=== PATIENT | male | born 1980 | race Caucasian/White ===

== ENCOUNTER → 2022-07-27 10:06 | Outpatient (CLI) | payer BC, SELFPAY ==
[2022-07-27 19:43] LABS: Basophils # 0.1 K/mm3 (0-0.2); Eosinophils # 0.1 K/mm3 (0.0-0.4); Eosinophils % 0.7 % (0.1-12.0); Hematocrit 46.9 % (42.0-52.0); Hemoglobin 15.9 g/dL (14.1-18.0); Lymphocytes # 1.7 K/mm3 (0.7-4.5); Lymphocytes % 22.9 % (10-50); Mean Corpuscular Hemoglobin 30.5 pg (27.0-31.2); Mean Corpuscular Volume 89.7 fl (80-94); Mean Platelet Volume 10.7 fl (7.4-10.4); Monocytes # 0.4 K/mm3 (0.1-1.0); Monocytes % 5.7 % (1.7-9.3); Neutrophils # 5.2 K/mm3 (1.8-7.8); Neutrophils % 69.6 % (37.0-80.0); Platelet Count 283 K/mm3 (142-424); Red Blood Count 5.24 M/mm3 (4.60-6.20); Red Cell Distribution Width 14.2 % (11.5-17.5); White Blood Count 7.4 K/mm3 (4.8-10.8)
[2022-07-27 19:50] LABS: Alanine Aminotransferase 88 U/L (12-78); Albumin Level 4.3 g/dl (3.5-5.0); Albumin/Globulin Ratio 1.3 (1.1-1.8); Alkaline Phosphatase 124 U/L (38-126); Anion Gap 17.8 mEq/L (5-15); Aspartate Amino Transferase 70 U/L (17-59); Bilirubin,Total 0.7 mg/dl (0.2-1.3); Blood Urea Nitrogen 10 mg/dl (9-20); Calcium 9.3 mg/dl (8.4-10.2); Carbon Dioxide 27 mmol/L (22.0-30.0); Chloride 99 mmol/L (98-107); Chol/HDL Ratio 5.3 (1-3.5); Cholesterol 211 mg/dl (140-200); Estimated Glomerular Filt Rate 125 ml/min (>60); GFR (African American) 151 ML/MIN (>60); Globulin 3.4 g/dL (1.3-3.2); Glucose 196 mg/dl (74-100); HDL Cholesterol 40 mg/dl (40-60); Potassium 3.8 mmoL/L (3.5-5.1); Sodium 140 mmol/L (136-145); Total Protein,Serum 7.7 g/dl (6.3-8.2); Triglycerides 204 mg/dl (30-150); VLDL Cholesterol 41 mg/dL (0-40)
[2022-07-27 20:09] LABS: Direct LDL Cholesterol 126.77 mg/dL (100-129); Hemoglobin A1C 8.1 % (4.0-6.0)
== END ==
PROVIDERS: PCP Nurse Practitioner Family; Visit Provider Nurse Practitioner Family
DX: R73.9 Hyperglycemia, unspecified (principal)
CPT/HCPCS: 80053; 80061; 83036; 85025

== ENCOUNTER → 2022-10-20 09:10 | Outpatient (CLI) | payer BC, SELFPAY ==
[2022-10-20 18:38] LABS: Hemoglobin A1C 6.3 % (4.0-6.0)
[2022-10-20 19:33] LABS: Creatinine,Urine Random 72 mg/dL (Not Estab.)
[2022-10-20 19:35] LABS: Microalbumin/Creatinine Ratio 65.5
== END ==
PROVIDERS: PCP Family Medicine; Visit Provider Family Medicine
DX: E11.9 Type 2 diabetes mellitus without complications (principal); Z79.84 Long term (current) use of oral hypoglycemic drugs
CPT/HCPCS: 82043; 82570; 83036

== ENCOUNTER → 2023-02-08 23:34 | Outpatient (CLI) | payer BC, SELFPAY ==
[2023-02-08 17:12] LABS: Creatinine,Urine Random 241 mg/dL (Not Estab.)
[2023-02-08 17:14] LABS: Microalbumin/Creatinine Ratio 69.5
[2023-02-08 17:37] LABS: Hemoglobin A1C 5.8 % (4.0-6.0)
== END ==
PROVIDERS: PCP Family Medicine; Visit Provider Family Medicine
DX: E11.9 Type 2 diabetes mellitus without complications (principal); Z79.84 Long term (current) use of oral hypoglycemic drugs
CPT/HCPCS: 82043; 82570; 83036

== ENCOUNTER → 2023-08-08 08:36 | Outpatient (CLI) | payer BC, SELFPAY ==
[2023-08-08 16:45] LABS: Basophils # 0.1 K/mm3 (0-0.2); Basophils % 0.8 % (0.1-2.0); Eosinophils # 0.1 K/mm3 (0.0-0.4); Hematocrit 49.3 % (42.0-52.0); Hemoglobin 16.5 g/dL (14.1-18.0); Lymphocytes # 1.2 K/mm3 (0.7-4.5); Lymphocytes % 20.2 % (10-50); Mean Corpuscular HGB Conc 33.4 g/dL (31.8-35.4); Mean Corpuscular Hemoglobin 31.7 pg (27.0-31.2); Mean Platelet Volume 12.6 fl (7.4-10.4); Monocytes # 0.5 K/mm3 (0.1-1.0); Monocytes % 8.5 % (1.7-9.3); Neutrophils # 4.1 K/mm3 (1.8-7.8); Neutrophils % 69.4 % (37.0-80.0); Platelet Count 281 K/mm3 (142-424); Red Blood Count 5.19 M/mm3 (4.60-6.20); Red Cell Distribution Width 14.1 % (11.5-17.5); White Blood Count 5.9 K/mm3 (4.8-10.8)
[2023-08-08 16:57] LABS: Alanine Aminotransferase 220 U/L (12-78); Albumin Level 4.6 g/dl (3.5-5.0); Albumin/Globulin Ratio 1.2 (1.1-1.8); Alkaline Phosphatase 233 U/L (38-126); Anion Gap 18.2 mEq/L (5-15); Aspartate Amino Transferase 107 U/L (17-59); Bilirubin,Total 5.3 mg/dl (0.2-1.3); Blood Urea Nitrogen 14 mg/dl (9-20); Calcium 10.1 mg/dl (8.4-10.2); Carbon Dioxide 27 mmol/L (22.0-30.0); Chloride 97 mmol/L (98-107); Chol/HDL Ratio 11.8 (1-3.5); Cholesterol 282 mg/dl (140-200); Estimated Glomerular Filt Rate 93 ml/min (>60); GFR (African American) 113 ML/MIN (>60); Glucose 245 mg/dl (74-100); HDL Cholesterol 24 mg/dl (40-60); Potassium 4.2 mmoL/L (3.5-5.1); Sodium 138 mmol/L (136-145); Total Protein,Serum 8.6 g/dl (6.3-8.2); Triglycerides 303 mg/dl (30-150); VLDL Cholesterol 61 mg/dL (0-40)
[2023-08-08 17:07] LABS: Direct LDL Cholesterol 191.86 mg/dL (100-129)
[2023-08-08 17:26] LABS: Thyroid Stimulating Hormone 1.57 uIU/mL (0.465-4.68)
[2023-08-08 18:02] LABS: Hemoglobin A1C 7.1 % (4.0-6.0)
[2023-08-08 18:26] LABS: Creatinine,Urine Random 145 mg/dL (Not Estab.)
[2023-08-08 19:24] LABS: Microalbumin/Creatinine Ratio 239.7
== END ==
PROVIDERS: PCP Nurse Practitioner Family; Visit Provider Nurse Practitioner Family
DX: E11.9 Type 2 diabetes mellitus without complications (principal); E78.5 Hyperlipidemia, unspecified; I10 Essential (primary) hypertension; Z79.84 Long term (current) use of oral hypoglycemic drugs; Z79.899 Other long term (current) drug therapy
CPT/HCPCS: 80053; 80061; 82043; 82570; 83036; 84443; 85025

== ENCOUNTER → 2023-08-10 07:42 | Outpatient (CLI) | payer BC, SELFPAY ==
--- NOTE | 2023-08-10 07:42 | US_ITS ---
FINAL REPORT TECHNIQUE: Sonographic images of the abdomen were obtained in all four quadrants. CLINICAL HISTORY: elevated liver function FINDINGS: LIVER: Homogeneous. No focal hepatic lesion. There may be mild intrahepatic biliary dilatation. GALLBLADDER: There are gallstones. No pericholecystic fluid collection or gallbladder wall thickening. The common duct is dilated measuring up to 10 mm. PANCREAS: Unremarkable. RIGHT KIDNEY: 10.4 cm. No hydronephrosis, mass or stone. LEFT KIDNEY: 11.4 cm. No hydronephrosis, mass or stone. SPLEEN: 13.4 cm. No focal splenic lesion. AORTA/IVC: No abdominal aortic aneurysm. Visualized IVC within normal limits. OTHER: No ascites. IMPRESSION: Gallstones. Intrahepatic and extrahepatic biliary ductal dilatation. Consider MRCP. A common duct stone is not excluded. Reviewed, Interpreted and Dictated by Alyssa Watson MD Transcribed by Fatou Robin Authenticated and . [facility]
[2023-08-10 08:42] LABS: Basophils # 0.1 K/mm3 (0-0.2); Eosinophils # 0.1 K/mm3 (0.0-0.4); Hemoglobin 15.7 g/dL (14.1-18.0); Lymphocytes # 1.4 K/mm3 (0.7-4.5); Lymphocytes % 30.7 % (10-50); Mean Corpuscular HGB Conc 34.2 g/dL (31.8-35.4); Mean Corpuscular Hemoglobin 31.5 pg (27.0-31.2); Mean Corpuscular Volume 91.9 fl (80-94); Mean Platelet Volume 10.2 fl (7.4-10.4); Monocytes # 0.4 K/mm3 (0.1-1.0); Monocytes % 8.5 % (1.7-9.3); Neutrophils # 2.7 K/mm3 (1.8-7.8); Neutrophils % 57.7 % (37.0-80.0); Platelet Count 232 K/mm3 (142-424); White Blood Count 4.7 K/mm3 (4.8-10.8)
[2023-08-10 09:54] LABS: Alanine Aminotransferase 207 U/L (12-78); Albumin Level 4.4 g/dl (3.5-5.0); Albumin/Globulin Ratio 1.2 (1.1-1.8); Alkaline Phosphatase 210 U/L (38-126); Anion Gap 17.2 mEq/L (5-15); Aspartate Amino Transferase 108 U/L (17-59); Bilirubin,Total 4.5 mg/dl (0.2-1.3); Blood Urea Nitrogen 13 mg/dl (9-20); Calcium 9.9 mg/dl (8.4-10.2); Carbon Dioxide 26 mmol/L (22.0-30.0); Chloride 98 mmol/L (98-107); Chol/HDL Ratio 10.8 (1-3.5); Cholesterol 260 mg/dl (140-200); Estimated Glomerular Filt Rate 93 ml/min (>60); GFR (African American) 113 ML/MIN (>60); Globulin 3.6 g/dL (1.3-3.2); Glucose 219 mg/dl (74-100); HDL Cholesterol 24 mg/dl (40-60); Potassium 4.2 mmoL/L (3.5-5.1); Sodium 137 mmol/L (136-145); Triglycerides 256 mg/dl (30-150); VLDL Cholesterol 51 mg/dL (0-40)
[2023-08-10 10:01] LABS: Hemoglobin A1C 7.2 % (4.0-6.0)
[2023-08-10 10:05] LABS: Direct LDL Cholesterol 186.04 mg/dL (100-129)
== END ==
LOC: RAD 07:42
PROVIDERS: PCP Nurse Practitioner Family; Visit Provider Nurse Practitioner Family
DX: R79.89 Other specified abnormal findings of blood chemistry (principal); E11.9 Type 2 diabetes mellitus without complications; Z79.84 Long term (current) use of oral hypoglycemic drugs
CPT/HCPCS: 36415; 76700; 80053; 80061; 83036; 85025

== ENCOUNTER 2024-01-11 18:00 | Outpatient (CLI) | payer BC, SELFPAY ==
[2024-01-11 17:58] LABS: Chol/HDL Ratio 6.7 (1-3.5); Cholesterol 214 mg/dl (140-200); HDL Cholesterol 32 mg/dl (40-60); Triglycerides 256 mg/dl (30-150); VLDL Cholesterol 51 mg/dL (0-40)
[2024-01-11 18:10] LABS: Direct LDL Cholesterol 112.09 mg/dL (100-129)
[2024-01-11 18:34] LABS: Hemoglobin A1C 7.3 % (4.0-6.0)
== END 2024-01-11 23:59 ==
LOC: LAB.DROPOF 01-12 13:48
PROVIDERS: PCP Family Medicine; Visit Provider Family Medicine
DX: E11.9 Type 2 diabetes mellitus without complications (principal); Z79.84 Long term (current) use of oral hypoglycemic drugs
CPT/HCPCS: 80061; 83036

== ENCOUNTER 2024-05-23 13:49 | Outpatient (CLI) | payer BC, SELFPAY ==
[2024-05-23 12:50] LABS: Microalbumin/Creatinine Ratio 31.3
[2024-05-23 12:52] LABS: Creatinine,Urine Random 106 mg/dL (Not Estab.)
[2024-05-23 13:05] LABS: Hemoglobin A1C 6.5 % (4.0-6.0)
[2024-05-23 13:18] LABS: Alanine Aminotransferase 40 U/L (12-78); Albumin Level 4.5 g/dl (3.5-5.0); Albumin/Globulin Ratio 1.4 (1.1-1.8); Alkaline Phosphatase 79 U/L (38-126); Anion Gap 12.6 mEq/L (5-15); Aspartate Amino Transferase 33 U/L (17-59); Bilirubin,Total 0.8 mg/dl (0.2-1.3); Blood Urea Nitrogen 11 mg/dl (9-20); Calcium 9.6 mg/dl (8.4-10.2); Carbon Dioxide 28 mmol/L (22.0-30.0); Chloride 105 mmol/L (98-107); Cholesterol 157 mg/dl (140-200); Estimated Glomerular Filt Rate 106 ml/min (>60); GFR (African American) 128 ML/MIN (>60); Globulin 3.3 g/dL (1.3-3.2); Glucose 138 mg/dl (74-100); HDL Cholesterol 39 mg/dl (40-60); Potassium 4.6 mmoL/L (3.5-5.1); Sodium 141 mmol/L (136-145); Total Protein,Serum 7.8 g/dl (6.3-8.2); Triglycerides 157 mg/dl (30-150); VLDL Cholesterol 31 mg/dL (0-40)
[2024-05-23 13:29] LABS: Direct LDL Cholesterol 82.73 mg/dL (100-129)
== END 2024-05-23 23:59 | disposition home or self-care (01) ==
LOC: LAB.DROPOF 05-24 13:50
PROVIDERS: PCP Family Medicine; Visit Provider Family Medicine
DX: E78.5 Hyperlipidemia, unspecified (principal); E11.9 Type 2 diabetes mellitus without complications; I10 Essential (primary) hypertension
CPT/HCPCS: 80053; 80061; 82043; 82570; 83036

== ENCOUNTER 2025-01-29 08:45 | Outpatient (CLI) | payer BC, SELFPAY ==
[2025-01-29 19:37] LABS: Alanine Aminotransferase 40 U/L (12-78); Albumin Level 4.4 g/dl (3.5-5.0); Albumin/Globulin Ratio 1.4 (1.1-1.8); Alkaline Phosphatase 88 U/L (38-126); Anion Gap 13.1 mEq/L (5-15); Aspartate Amino Transferase 29 U/L (17-59); Bilirubin,Total 0.8 mg/dl (0.2-1.3); Blood Urea Nitrogen 14 mg/dl (9-20); Calcium 9.5 mg/dl (8.4-10.2); Carbon Dioxide 22 mmol/L (22.0-30.0); Chloride 107 mmol/L (98-107); Chol/HDL Ratio 5.3 (1-3.5); Cholesterol 169 mg/dl (140-200); Estimated Glomerular Filt Rate 106 ml/min (>60); GFR (African American) 128 ML/MIN (>60); Globulin 3.1 g/dL (1.3-3.2); Glucose 168 mg/dl (74-100); HDL Cholesterol 32 mg/dl (40-60); Potassium 4.1 mmoL/L (3.5-5.1); Sodium 138 mmol/L (136-145); Total Protein,Serum 7.5 g/dl (6.3-8.2); Triglycerides 297 mg/dl (30-150); VLDL Cholesterol 59 mg/dL (0-40)
[2025-01-29 19:48] LABS: Direct LDL Cholesterol 70.27 mg/dL (100-129)
[2025-01-29 20:36] LABS: HIV Combo NEGATIVE (Negative)
[2025-01-29 20:43] LABS: Hepatitis C Ab Qual. W/ RFX NEGATIVE (Negative)
--- OUTSIDE RECORDS SUMMARY | 2025-01-30 13:29 | XMS_ITS | Data Portability ---
Author Organization [place] - [facility] & JAMAL Santos ADMIN Address [address] [place] [id number] Assessment No assessment recorded. Plan of Treatment Reminders Order Date Submit Date Provider Last Modified By Organization Details Last Modified Time Details Appointments None record ed. Lab None record ed. Referral None record ed. Procedures None record ed. Surgeries None record ed. Imaging None record ed. Medication Orders None record ed. Patient TargetsNo targets recorded. Patient InstructionsNo instructions recorded. Reason for Referral None Reported. Results Created Date Observation Date Name Description Value Unit Range Abnormal Flag Note LastModifiedBy Organization Detail LastModifiedTime 09/05/20 23 09/05/2023 HEPAT IC FUNCT IONAL PANEL total protein 8.1 g/dL 6.4-8. 2 Not Available [facility] ([facility]) [address] [place], [address], 09/05/2023 13:30:49 09/05/20 23 09/05/2023 HEPAT IC FUNCT IONAL PANEL albumin 3.8 g/dL 3.4-5. 0 Not Available [facility] ([facility]) [address] [place], [address], 09/05/2023 13:30:49 09/05/20 23 09/05/2023 HEPAT IC FUNCT IONAL PANEL bilirubin direct 0.4 O.oo-0 .30 high Not Available [facility] ([facility]) [address] [place], [address], 09/05/2023 13:30:49 09/05/20 23 09/05/2023 HEPAT IC FUNCT IONAL PANEL bilirubin total 1.00 mg/dL 0.10-1 .00 Not Available [facility] ([facility]) [address] [facility], [place], [address], 09/05/2023 13:30:49 09/05/20 23 09/05/2023 HEPAT IC FUNCT IONAL PANEL bilirubin indirect 0.60 Not Available [facility] ([facility]) [address] [facility], [place], [address], 09/05/2023 13:30:49 09/05/20 23 09/05/2023 HEPAT IC FUNCT IONAL PANEL AST (SGOT) 60 U/L 0-37 high Not Available [facility] ([facility]) [address] [facility], [place], [address], 09/05/2023 13:30:49 09/05/20 23 09/05/2023 HEPAT IC FUNCT IONAL PANEL ALT (SGPT) 127 U/L 0-65 high Not Available [facility] ([facility]) [address] [facility], [place], [address], 09/05/2023 13:30:49 09/05/20 23 09/05/2023 HEPAT IC FUNCT IONAL PANEL alk phosphatase 125 U/L 46-116 high Not Available [facility] ([facility]) [address] [facility], [place], [address], 09/05/2023 13:30:49 09/07/20 23 09/07/2023 fluor o less than 1 HR [facility] [address] [place] [address] Phone: Fax: Name: JIM LIVINGSTON Exam Date: 023 : 1979 Age 43 Gender : M Access ion: [id number] Physic jaden: CASE, NADINE Facili ty: [place] Facili ty HSV: Outpat ient Exam: FLUORO LESS THAN 1 HR Fluoro scopy time in the OR Histor y: ERCP Findin gs: Number of images : 7 Fluoro time: 43.9 second s DAP: 0.4625 8 uGym2. Radiat ion exposu re in Refere nce air Kerma: 26.31 mGy. Impres angelia: Fluoro scopy time in the OR. Please see operat hilaria report . Images review ed, interp reted and dictat ed by Dr. Shearer. Transc ribed by Ottoniel Guerra PA-C Dictat ed By: MIRLANDE SHEARER Transc ribed By: Mirlande Shearer Transc ribed On: 023 12:29 PM Electr onical ly signed by: MIRLANDE SHEARER Thank you for referr JIM Stanford to [facility]. Legall y authen ticate d by POPE MIRLANDE Roberts 2022-10 12:29: 04 CC'ed Logic: Orderi ng Provid er: RO MCCOY Referr estela Provid er: RO MCCOY [email or web address] [facility] [address] [facility], [place], [address], 09/07/2023 13:44:35 Result Notes Documentation Provider Name and Address Organization Details Recorded Time Pathology Study : reviewed - chronic cholecystitis Giuliana Sheffield MD [address] [facility], [place], [address], [facility] - [facility] [place] 09/14/2023 14:56:21 Problems Name Problem SNOMED Code Status Onset Date Resolution Date Notes Provider Name and Address Organization Details Recorded Time Gallstone pancreatitis 84628585 Active 2022 Raymond Romano PA-C [address], [place], [address] , [facility] - [facility] [place] 16:39:55 Problem Notes None recorded. Procedures Surgical History Date Name Laterality Status Provider Name and Address Organization Details Recorded Time Stent Placement completed Adali Caldwell [place] - [facility] [place] 08/23/2023 09:23:40 Imaging Results Imaging Date Name Status LastModified by Ki atarben Details LastModified Time 09/07/2023 fluoro less than 1 HR completed [email or web address] [facility] [address], [place], [address], 09/07/2023 13:44:35 Procedure Notes None recorded. Medical Equipment None Reported. Allergies No known drug allergies Medications Name Sig Start Date Stop Date Status Note LastModified by Organization Details LastModified Time metformin 500 mg tablet active Not Available Not Available Not Available ibuprofen 800 mg tablet 09/20 completed Not Available Not Available Not Available acetaminophen 500 mg tablet active Not Available Not Availabl e Not Available triamcinolone acetonide 0.1 % topical cream active Not Available Not Availabl e Not Available oxycodone-acetam inophen 5 mg-325 mg tablet 09/20 completed Not Available Not Available Not Available OneTouch Ultra Test strips active Not Available Not Available Not Available lisinopril 5 mg tablet active Not Available Not Available Not Available ibuprofen 600 mg tablet 09/20 completed Not Available Not Available Not Available oxycodone-acetam inophen 7.5 mg-325 mg tablet 08/23 completed Not Available Not Available Not Available ondansetron 4 mg disintegrating tablet 08/23 completed Not Available Not Available Not Available metformin ER 500 mg tablet,extended release 24 hr active Not Available Not Availabl e Not Available Vitals Date Recorded Body weight Body mass index (BMI) Body height Oxygen saturation Oxygen saturation in Arterial blood by Pulse oximetry Body temperature Heart rate Systolic blood pressure Diastolic blood pressure Provider Name and Address Organization Details Last Updated DateTime 3 67834.6 3 g 25.1 kg/m2 180.34 cm 98 % 98 % 97.7 [degF] 119 /min 126 mm[Hg] 88 mm[Hg] Adali munoz [place] - [place] [facility] [place] 3 09:17:55 Date Recorded Body height Body mass index (BMI) Body weight Body temperature Oxygen saturation Oxygen saturation in Arterial blood by Pulse oximetry Heart rate Systolic blood pressure Diastolic blood pressure Provider Name and Address Organization Details Last Updated DateTime 3 180.34 cm 25.5 kg/m2 65244.6 1 g 98.2 [degF] 98 % 98 % 109 /min 115 mm[Hg] 84 mm[Hg] Krystal Bravo [facility] & [place] 09:41:22 Social History Question Answer Notes LastModified by Organizat ion Details LastModified Time Tobacco Smoking Status Never Smoker Adali chapa, [facility] [place] 08/23/2023 09:22:46 What Is Your Level Of Alcohol Consumption? None Information not available 08/23/2023 Do You Use Any Illicit Or Recreational Drugs? No Information not available 08/23/2023 Sex: Unknown Functional Status None recorded. Mental Status None recorded. Family History Relationship Description Onset Age of this Age Resolved Age Notes LastModified by Organization Details LastModified Time Father Heart disease [email or web address] Not available 09:20:50 Mother Diabetes mellitus [email or web address] Not available 09:21:16 Mother Disorder of thyroid gland [email or web address] Not available 09:21:44 Sister Diabetes mellitus [email or web address] Not available 09:22:05 Medical History Condition Response Diabetes Y Hypertension Y Past Encounters Encounter ID Performer Location Encounter Start Date Encounter Closed Date Diagnosis/Indication Diagnosis SNOMED-CT Code Diagnosis ICD10 Code Diagnosis Note [id number] Giuliana Sheffield MD [facility] General Surgery [address] [place] [address],[facility] e [address] [place] [id number] 08/23/2023 08:58:14 08/23/2023 09:56:12 Common bile duct calculus 555885067 K80.50 Cholelithi asis with recent choledocho lithiasis and pancreatit is requiring ERCP and stent placement. I have scheduled the patient for urgent robotic assisted laparoscop ic multiport cholecyste ctomy, concomitan t with the scheduled ERCP and stent removal by Dr. Cisse. Informed consent was obtained. Risks and benefits of the procedure, including but not limited to, bleeding, infection, damage to surroundin g structures and ongoing symptoms were discussed. Standard of care efforts are taken to minimize risks. Typical hospital stay and recovery were reviewed. The typical postoperat hilaria pain regimen and avoidance of narcotics were discussed. The patient verbalized understand ing of the plan including the risks and benefits. Appropriat e preoperati ve testing as clinically indicated were ordered as a part of this patient's care. [id number] Giuliana Sheffield MD [facility] General Surgery [address] [place] [address] 09/20/2023 09:30:31 09/20/2023 09:56:08 Calculus of bile duct with cholecystitis 48967849 K80.45 Stable postop. No restrictio ns. Was given work release. F/U with me PRN. Health Concerns Section Related Observation LastModified by Organization Detai ls LastModified Time None Recorded Concern Status LastModified by Organization Details LastModified Time None Recorded Advance Directives Directive None Recorded Payers Encounter Date Sequence Insurance Name Policy Number Policy Green Covered Member ID Green Member ID Guarantor Name 08/23/2023 1 [place] [id number] Jim Livingston [id number] Jim Livingston 09/20/2023 1 [place] [id number] Jim Gita Livingston [id number] Jim Livingston Notes Date Note Type Note Provider Name and Address Organization Details Recorded Time 08/23/2023 text/html 43-year-old man referred for cholecystectomy. He underwent ERCP and stent placement on 08/12 due to common duct stone with obstruction and pancreatitis. He was scheduled for repeat ERCP and stent removal by Dr. Cisse on 09/07. Giuliana Sheffield MD [address], [place], [address], [facility] [place] 08/23/2023 10:00:33 09/20/2023 text/html 2 weeks status post robotic cholecystectomy. Pathology showed gallstones and chronic cholecystitis. He feels well overall. Giuliana Sheffield MD [address], [place], [address], [facility] 09/20/2023 10:06:22
== END 2025-01-29 23:59 | disposition home or self-care (01) ==
LOC: LAB.DROPOF 01-30 13:27
PROVIDERS: PCP Family Medicine; Visit Provider Family Medicine
DX: E11.9 Type 2 diabetes mellitus without complications (principal); Z11.59 Encounter for screening for other viral diseases
CPT/HCPCS: 80053; 80061; 83036; 86803; 87389